=== PATIENT | male | born 1970 | race Two or more races ===

== ENCOUNTER 2020-09-21 08:38 | Day surgery (SDC) | payer OTHER ==
[~2020-09-21 08:38] MED LIST: ACID REDUCER20 M1 PO; COLCHICINE0.6 MG PO; COZAAR50 MG PO; CYMBALTA30 MG PO
== END 2020-09-21 18:00 | disposition home or self-care (01) ==
LOC: CIR.AMB 08:38
PROVIDERS: ATTEND Orthopaedic Surgery
DX: M75.02 Adhesive capsulitis of left shoulder (principal); M75.42 Impingement syndrome of left shoulder; Z20.828 Contact with and (suspected) exposure to other viral communicable diseases